=== PATIENT | female | born 1970 | race Caucasian/White ===

== ENCOUNTER 2021-10-23 02:48 | Inpatient (IN) | payer OTHER, SELFPAY ==
[2021-10-23] VITALS (15 sets, daily range): BP systolic 107–136; BP diastolic 55–84; PULSE 90–124; RESP 14–20; TEMP 37–38.3; O2SAT 96–100; BMI 30.1
--- NOTE | ~2021-10-23 | XR_ITS ---
XR abdomen/kub 1V 10/23/2021 04:23 INDICATION: Left flank pain TECHNIQUE: KUB COMPARISON: None FINDINGS: Bowel gas pattern is normal. There is no evidence of free air, mass, organomegaly, ascites or obstruction. No abnormal calculi are seen. The bones appear intact. IMPRESSION: 1: No acute abdominal abnormality identified. Reviewed, dictated and finalized at location A. PMENT INSPECTOR
--- NOTE | ~2021-10-23 | US_ITS ---
US abdomen limited INDICATION: Transaminitis PROCEDURE: Realtime right upper abdominal ultrasound. COMPARISON: No prior studies for comparison. FINDINGS: The pancreas is normal without focal mass or pancreatic ductal dilation. Liver echotexture is normal without focal mass or intrahepatic biliary dilatation. There is normal directional flow i n the portal vein. The gallbladder is normal without stones, gallbladder wall thickening or pericholecystic fluid. Comm on bile duct measures 2 mm. No sonographic Headley's sign. IMPRESSION: 1: Normal limited abdominal ultrasound. Reviewed, dictated and finalized at location A. [employer]
--- NOTE | ~2021-10-23 | CT_ITS ---
EXAMINATION: CT abdomen pelvis wo con DATE: 10/23/2021 04:24 INDICATION: Left length pain TECHNIQUE: Computed tomography (CT) of the abdomen and pelvis was performed without intravenous contr ast. The dose-length product was 595.21 mGy-cm. Automated exposure control and iterative reconstructi on technique were employed. COMPARISON: None. FINDINGS: Heart size normal. No significant pleural or pericardial effusion. There is left hydrourete ronephrosis with periureteral and perinephric edema. No obstructing stone identified. There are nonob structing bilateral renal stones. Lung bases are unremarkable. Heart size normal. No significant pleural or pericardial effusion. The l iver, spleen, pancreas, adrenal glands are unremarkable. Normal appendix. Nonobstructive bowel patter n. No free air or free fluid. IMPRESSION: 1. Moderate left hydroureteronephrosis, likely secondary to recently passed ureteral stone. Cannot ex clude ascending urinary tract infection. 2: Nonobstructing bilateral nephrolithiasis. Reviewed, dictated and finalized at location A. OFF DRIVER IMPRESSION: 1. Moderate left hydroureteronephrosis, likely secondary to recently passed ure teral stone. Cannot exclude ascending urinary tract infection. 2: Nonobstructing bilateral nephrolithiasis.
--- NOTE | 2021-10-23 03:16 | ED.BACK ---
HPI - Back Pain/Injury General Chief Complaint: Back Pain/Injury Stated Complaint: lower back pain Time Seen by Provider: 10/23/21 02:53 Source: patient Mode of arrival: ambulatory Limitations: no limitations History of Present Illness HPI Narrative: This is a 51 year old female who presents for evaluation of left lower back pain. She developed mild pain Saturday and it has gradually increased in intensity. Tonight she developed chills, nausea, weakness and headache so she came to ER for evaluation. Her is improved with warm showers. she took ibuprofen 400 mg 2 hours ago without improvement in her pain. She denies worsening pain with movement. Currently her pain is 7/10. She denies hematuria, dysuria, or increased urinary frequency. She does not irregular menses and she reports she is perimenopausal. On saturday, she had a few hours of vaginal bleeding that resolved. MD elicited complaint: back pain Related Data Home Medications Medication Instructions Recorded Confirmed rhubarb root extract 4 mg tablet mg PO 04/14/21 04/14/21 Allergies Allergy/AdvReac Type Severity Reaction Status Date / Time Penicillins Allergy Severe Anaphylaxis Verified 10/23/21 02:55 Review of Systems Review of Systems: All systems reviewed & are unremarkable except as noted in HPI and below Constitutional: Constitutional: Reports chills and Reports weakness ENT: Denies nasal congestion and Denies sore throat Cardiovascular: Cardiovascular: Denies chest pain Respiratory: Respiratory: Denies cough and Denies dyspnea Gastrointestinal: Gastrointestinal: Reports abdominal pain, Denies diarrhea, Reports nausea and Denies vomiting Genitourinary: Genitourinary: Reports abnormal vaginal bleeding, Denies hematuria and Reports flank pain Musculoskeletal: Musculoskeletal: Reports back pain Neurologic: Reports headache(s) [facility] Past Medical History Medical History (Updated 10/23/21 @ 06:28 by Chaya Robbins MD) Anemia Essential (primary) hypertension Raynauds syndrome Surgical History Surgical History (Updated 10/23/21 @ 03:23 by Chaya Robbins MD) H/O exploratory laparotomy Social History Social History Smoking status: Never smoker Second hand tobacco smoke exposure: No Alcohol intake: current Exam Const: General: no acute distress and alert Orientation/consciousness: patient oriented x3 Eyes: EOM: EOMs intact bilaterally Resp: Effort & Inspection: normal respiratory effort and no retractions Auscultation: clear to auscultation bilaterally Cardio: Rate: regular rate Rhythm: regular rhythm Heart sounds: no murmurs GI: GI Palp: Yes Soft to palpation, No Tenderness to palpation present (GI), No Guarding due to palpation present (GI) and No Rigid due to palpation Auscultation: normal bowel sounds : General: Yes no CVA tenderness Skin: General skin exam: normal color Rashes: no rashes Neuro: General: patient oriented x3 and CN's II-XI intact bilaterally Psych: Mental Status: mental status grossly normal Affect: normal affect Course Reevaluation(s) Reevaluation #1: I discussed with patient she has findings of sepsis due to UTI. She reports nausea has resolved. She still has headache and she is still slightly tachycardic. Date: 10/23/21 Time: 05:51 Vital Signs Vital signs: Vital Signs Temperature 98.8 F 10/23/21 02:49 Pulse Rate 124 H 10/23/21 02:49 Respiratory Rate 20 10/23/21 02:49 Blood Pressure 136/84 10/23/21 02:49 Pulse Oximetry 100 10/23/21 02:49 Temperature 98.8 F 10/23/21 02:49 Pulse Rate 105 H 10/23/21 05:26 Respiratory Rate 18 10/23/21 05:26 Blood Pressure 116/71 10/23/21 05:26 Pulse Oximetry 96 10/23/21 05:26 MDM - Back Pain/Injury Lab Data Attestation: I reviewed the patient's lab results. Result diagrams: 10/23/21 03:21 10/23/21 03:21 Labs:
[2021-10-23] MEDS: SODIUM CHLORIDE 0.9% IV 1,000 ML 999 ML IV CONT ×3 (03:24→06:19)
[2021-10-23] MEDS: MORPHINE SULFATE (*CRX) 4 MG/ML INJ IV PUSH (03:25)
[2021-10-23] MEDS: ONDANSETRON INJ 4 MG/2 ML VIAL IV PUSH (03:25)
[2021-10-23 03:44] LABS: Basophils Percent Auto 0.2 % (0.2-1.2); Eosinophils Percent Auto 0.2 % (0-4.4); Hematocrit 43.4 % (37.0-47.0); Hemoglobin 14.7 g/dL (12.0-15.0); Immature Granulocyte Absolute 0.03 K/mm3 (0.00-0.031); Immature Granulocyte Percent A 0.2 % (0-0.5); Lymphocytes Absolute Auto 0.99 K/mm3 (0.9-3.2); Lymphocytes Percent Auto 7.3 % (18.3-44.2); Mean Corpuscular HGB Conc 33.9 g/dl (32-36); Mean Corpuscular Hemoglobin 29.9 pg (26-34); Mean Corpuscular Volume 88.4 fl (80-100); Mean Platelet Volume 8.5 fl (7.4-10.4); Monocytes Absolute Auto 1.1 K/mm3 (0.1-0.6); Monocytes Percent Auto 7.9 % (2.6-8.5); Neutrophils Absolute Auto 11.5 K/mm3 (1.3-6.7); Neutrophils Percent Auto 84.2 % (45.5-73.1); Platelet Count Result 285 k/mm3 (150-375); Red Blood Count 4.91 M/mm3 (4.2-5.4); Red Cell Distribution Width 13.9 % (11.5-14.5); White Blood Count 13.6 K/mm3 (4.5-10.0)
[2021-10-23 03:48] LABS: Alanine Aminotransferase 21 U/L (4-35); Albumin Level 4.7 g/dL (3.5-5.1); Alkaline Phosphatase 79 U/L (38-126); Anion Gap 9 mmol/L (8-16); Aspartate Amino Transferase 24 U/L (14-36); Bilirubin,Total 0.5 mg/dL (0.2-1.3); Blood Urea Nitrogen 12 mg/dL (7-17); Carbon Dioxide 27 mmol/L (22-30); Chloride 100 mmol/L (98-107); Estimated CRCL calculation 73 ml/min; Estimated Glomerular Filt Rate > 60; Glucose 132 mg/dL (65-110); Lipase 33 U/L (23-300); Potassium 3.8 mmol/L (3.4-5.0); Sodium 136 mmol/L (137-145)
[2021-10-23 03:49] LABS: Lactic Acid Reflex 1.3 mmol/L (0.7-2.1)
[2021-10-23 03:54] LABS: Add Urine Microscopic? YES; Appearance Urine Cloudy (Clear); Bacteria Urine 2+ /hpf; Bilirubin Urine Negative (Negative); Blood Urine 2+ (Negative); Color Urine Yellow (Yellow); Glucose Urine UA Negative (Negative); Ketones Urine Trace mg/dL (Negative); Leukocyte Esterase Ur 2+ LEU/UL (Negative); Mucus Urine Rare /lpf; Nitrate Urine Positive (Negative); Protein Urine 2+ mg/dL (Negative); RBC Urine 21-50 /hpf (0-2); Specific Grav Ur 1.013 (1.001-1.035); Squamous Epithelial Cell Urine Many /hpf (Few); Urobilinogen Urine Negative mg/dL (<2.0); WBC Urine >75 /hpf
[2021-10-23] MEDS: HYDROmorphone HCL INJ (*CRX) 1 MG/ML SYR IV PUSH (05:23)
--- NOTE | 2021-10-23 07:45 | PM.IMHP ---
H&P: HPI History of Present Illness Date/Time: 10/23/21 07:45 This 51 year old female patient with PMH of HTN is being admitted to the hospital after presenting to the ER in the manager environmental health and safety hours with complaints of two days of severe back pain, low grade fevers, and chills with intermittent Nausea and weakness. She endorsed that she also had a headache and low abdominal pain. In the ER she was noted to have Leukocytosis and her urine was positive for a UTI. X-ray of abdomen was negative, but on CT of abdomen, the pt. had noted dilation of the left renal collecting system and perinephric and periureteral stranding was present signifying an ascending UTI. 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 Chief Complaint: UTI, Sepsis Review of Systems Review of Systems: A 12 point ROS was performed and is negative except as noted in HPI. [facility] Past Medical History Medical History Anemia Essential (primary) hypertension Raynauds syndrome Surgical History Surgical History H/O exploratory laparotomy Social History Social History Smoking status: Never smoker Second hand tobacco smoke exposure: No Alcohol intake: current Meds Home Medications and Allergies Home Medications Medication Instructions Recorded Confirmed Type lisinopril 40 mg tablet 40 mg PO DAILY #90 tablet 04/14/21 04/14/21 Rx rhubarb root extract 4 mg tablet mg PO 04/14/21 04/14/21 History Allergies Allergy/AdvReac Type Severity Reaction Status Date / Time Penicillins Allergy Severe Anaphylaxis Verified 10/23/21 02:55 Vital Signs Vital Signs - 24 hr 10/23/21 02:49 10/23/21 03:33 10/23/21 04:36 Temperature 98.8 F Pulse Rate 124 H 102 H 101 H Respiratory Rate 20 18 16 Blood Pressure 136/84 116/70 119/74 Pulse Oximetry 100 99 98 10/23/21 05:26 10/23/21 06:34 10/23/21 07:18 Temperature Pulse Rate 105 H 99 99 Respiratory Rate 18 18 18 Blood Pressure 116/71 107/55 L 111/74 Pulse Oximetry 96 97 100 Exam Const: General: comfortable and no acute distress; No in distress HENMT: Mouth: Yes moist mucous membranes Eyes: General: appearance normal, both eyes and all related structures Sclera: sclerae normal Pupils: Equal, round and reactive pupils present EOM: EOMs intact bilaterally Neck: Neck: supple and no JVD Thyroid: thyroid normal Lymphatic: lymphadenopathy not noted Resp: Effort & Inspection: normal respiratory effort Auscultation: clear to auscultation bilaterally Cardio: Rate: regular rate Rhythm: regular rhythm GI: GI Palp: Yes Soft to palpation and Yes Tenderness to palpation present (GI) (TTP suprapubic region.) Auscultation: normal bowel sounds Skin: General skin exam: normal color and no rashes or lesions noted Neuro: General: gait normal Speech: normal speech Motor exam (neuro): 5/5 motor strength present throughout and Normal motor muscle tone present throughout Extrem: General: normal to inspection Right upper extremity: normal to inspection Left upper extremity: normal to inspection Right lower extremity: normal to inspection Left lower extremity: normal to inspection Psych: Mental Status: mental status grossly normal Affect: normal affect H&P: Results Labs Labs: Short CBC 10/23/21 Range/Units 03:21 WBC 13.6 H (4.5-10.0) K/mm3 Hgb 14.7 (12.0-15.0) g/dL Hct 43.4 (37.0-47.0) % Plt Count 285 (150-375) k/mm3 [facility] 10/23/21 03:21 Sodium 136 L Potassium 3.8 Chloride 100 Carbon Dioxide 27 BUN 12 Creatinine 0.80 Glucose 132 H Calcium 9.0 Liver Function 10/23/21 Range/Units 03:21 Total Bilirubin 0.5 (0.2-1.3) mg/dL AST 24 (14-36) U/L ALT 21 (4-35) U/L Alkaline Phosphatase 79
--- NOTE | 2021-10-23 07:58 | PC.NURSE ---
This patient, Viry Baires, was admitted to Medical Room 250-01. Patient/family oriented to hospital policies and general routines including ID bracelet, bed and alarms, visiting hours, pain management, procedures, bathroom and other care routines, personal items, smoking policy, room service/diet, and visiting hours. Information on how to activate the Rapid Response Team has been discussed. Patient/Family are encouraged to report perceived risks to care and to ask questions if they do not understand what they are told or what they should do.
[2021-10-23] MEDS: SODIUM CHLORIDE 0.9% IV 1,000 ML 125 ML IV CONT ×2 (09:01→18:33)
[2021-10-23] MEDS: lisinopriL 20 MG TABLET 40 MG PO (09:02)
[2021-10-23] MEDS: KETOROLAC 30 MG/ML VIAL (*BKC) IV PUSH (18:33)
[2021-10-24] VITALS (20 sets, daily range): BP systolic 113–138; BP diastolic 58–68; PULSE 64–113; RESP 16–21; TEMP 36.4–39.3; O2SAT 95–100
[2021-10-24] MEDS: KETOROLAC 30 MG/ML VIAL (*BKC) IV PUSH (01:44)
[2021-10-24] MEDS: SODIUM CHLORIDE 0.9% IV 1,000 ML 125 ML IV CONT ×3 (03:06→20:17)
[2021-10-24 05:23] LABS: Basophils Percent Auto 0.2 % (0.2-1.2); Eosinophils Percent Auto 0.3 % (0-4.4); Hematocrit 40.6 % (37.0-47.0); Hemoglobin 13.4 g/dL (12.0-15.0); Immature Granulocyte Absolute 0.05 K/mm3 (0.00-0.031); Immature Granulocyte Percent A 0.5 % (0-0.5); Lymphocytes Absolute Auto 1.22 K/mm3 (0.9-3.2); Lymphocytes Percent Auto 11.6 % (18.3-44.2); Mean Corpuscular Hemoglobin 29.1 pg (26-34); Mean Corpuscular Volume 88.3 fl (80-100); Mean Platelet Volume 8.5 fl (7.4-10.4); Monocytes Absolute Auto 0.9 K/mm3 (0.1-0.6); Monocytes Percent Auto 8.7 % (2.6-8.5); Neutrophils Absolute Auto 8.3 K/mm3 (1.3-6.7); Neutrophils Percent Auto 78.7 % (45.5-73.1); Platelet Count Result 183 k/mm3 (150-375); Red Cell Distribution Width 14.2 % (11.5-14.5); White Blood Count 10.5 K/mm3 (4.5-10.0)
[2021-10-24 05:55] LABS: Alanine Aminotransferase 51 U/L (4-35); Albumin Level 3.7 g/dL (3.5-5.1); Alkaline Phosphatase 82 U/L (38-126); Anion Gap 4 mmol/L (8-16); Aspartate Amino Transferase 56 U/L (14-36); Bilirubin,Total 0.5 mg/dL (0.2-1.3); Blood Urea Nitrogen 7 mg/dL (7-17); Calcium 7.7 mg/dL (8.4-10.2); Carbon Dioxide 25 mmol/L (22-30); Chloride 108 mmol/L (98-107); Estimated CRCL calculation 95 ml/min; Estimated Glomerular Filt Rate > 60; Glucose 101 mg/dL (65-110); Potassium 3.8 mmol/L (3.4-5.0); Sodium 137 mmol/L (137-145)
[2021-10-24] MEDS: ACETAMINOPHEN 500 MG TABLET 1000 MG PO ×3 (06:45→21:15)
[2021-10-24 08:22] LABS: Procalcitonin 0.1 ng/mL
[2021-10-24] MEDS: lisinopriL 20 MG TABLET 40 MG PO (08:51)
--- NOTE | 2021-10-24 10:07 | PM.IMPN ---
Progress Note: A&P Assessment and Plan (1) Sepsis: Onset Date: ~10/23/21 Qualifiers: Sepsis acute organ dysfunction status: without acute organ dysfunction Sepsis type: sepsis due to unspecified organism Qualified Code(s): A41.9 - Sepsis, unspecified organism Code(s): A41.9 - Sepsis, unspecified organism Status: Acute Assessment and Plan: - Secondary to UTI/Pyelo. - Treat with Abx, Levaquin as pt. has anaphylaxis to PCN. - Await results of Urine Cx. - Blood cultures x2 preliminarily without growth at 24 hours. - Follow labs and VS trends. Lactic acid and Procalcitonin are negative after pt. spiked fever. - Will tailor treatment according to the urine culture results. (2) UTI (urinary tract infection): Onset Date: ~10/23/21 Qualifiers: Urinary tract infection type: acute pyelonephritis Qualified Code(s): N10 - Acute pyelonephritis Code(s): N39.0 - Urinary tract infection, site not specified Status: Acute Assessment and Plan: - Secondary to UTI/Pyelo. - Treat with Abx, Levaquin as pt. has anaphylaxis to PCN. - Await results of Urine Cx. - Blood cultures x2 preliminarily without growth at 24 hours. - Follow labs and VS trends. Lactic acid and Procalcitonin are negative after pt. spiked fever. - Will tailor treatment according to the urine culture results (3) Essential (primary) hypertension: Onset Date: Unknown Code(s): I10 - Essential (primary) hypertension Status: Chronic Assessment and Plan: - Continue Lisinopril 40 mg po daily. - Monitor. Currently stable. - PRN Hydralazine is ordered for coverage if SBP>180 or DBP>90. Time Spent With Patient Time with patient: 15 - 25 minutes Subjective Date/time seen: 10/24/21 0730 This pt. was examined at the bedside in interval assessment. She was admitted to the hospital yesterday for a UTI with sepsis. She was having worsening of her symptoms. She was placed on Levaquin on the floor and cultures are pending. Preliminary Blood cultures are both negative this far for any growth, but urine is still pending. She remains stable, but did spike a fever of 102.0 this AM. Lactic acid and Procalcitonin are checked and are both negative. Fever relieved with Tylenol. It is noted though on her labs that her transaminases are now elevated and on exam, pt does have some tenderness of the RUQ. She does still have a Gall Bladder. limited is ordered for evaluation at this time. Pt. has no other new complaints such as cough, CP, dyspnea, N/V. Review of Systems Review of Systems: A full 12 point ROS was performed and is otherwise negative with exception of what is mentioned in HPI. All systems reviewed & are unremarkable except as noted in HPI and below Exam Const: General: comfortable and no acute distress; No in distress HENMT: Mouth: Yes moist mucous membranes Eyes: General: appearance normal, both eyes and all related structures Sclera: sclerae normal Pupils: Equal, round and reactive pupils present EOM: EOMs intact bilaterally Neck: Neck: supple and no JVD Thyroid: thyroid normal Lymphatic: lymphadenopathy not noted Resp: Effort & Inspection: normal respiratory effort Auscultation: clear to auscultation bilaterally Cardio: Rate: regular rate Rhythm: regular rhythm GI: GI Palp: Yes Tenderness to palpation present (GI) (RUQ and Suprapubic) and Yes Guarding due to palpation present (GI) (Suprapubic) Auscultation: normal bowel sounds Skin: General skin exam: normal color and no rashes or lesions noted Neuro: General: gait normal Cranial nerves: Yes Equal, round and reactive pupils present Speech: normal speech Motor exam (neuro): 5/5 motor strength present throughout and Normal motor muscle tone present throughout Extrem: General: normal to inspection Right upper extremity: normal to inspection Left upper extremity: normal to inspection Right lower extremity: normal to inspection Le
[2021-10-24 11:58] LABS: Glucose Point of Care 77 mg/dl (65-105)
[2021-10-24] MEDS: MORPHINE SULFATE (*CRX) 4 MG/ML INJ IV PUSH (12:23)
[2021-10-24] MEDS: ENOXAPARIN 40 MG/0.4 ML SYRINGE SUB-Q (14:19)
[2021-10-24] MEDS: ERTAPENEM 1 GM/NS 50 ML 1 GM/50 ML BAG IVPB (14:55)
[2021-10-25] VITALS (10 sets, daily range): BP systolic 113–128; BP diastolic 58–68; PULSE 67–95; RESP 17–20; TEMP 36.1–37.8; O2SAT 95–100
[2021-10-25] MEDS: SODIUM CHLORIDE 0.9% IV 1,000 ML 125 ML IV CONT (03:31)
[2021-10-25 07:42] LABS: Basophils Percent Auto 0.3 % (0.2-1.2); Eosinophils Absolute Auto 0.1 K/mm3 (0-0.3); Eosinophils Percent Auto 0.8 % (0-4.4); Hematocrit 32.1 % (37.0-47.0); Hemoglobin 11.1 g/dL (12.0-15.0); Immature Granulocyte Absolute 0.04 K/mm3 (0.00-0.031); Immature Granulocyte Percent A 0.4 % (0-0.5); Lymphocytes Absolute Auto 1.15 K/mm3 (0.9-3.2); Lymphocytes Percent Auto 10.8 % (18.3-44.2); Mean Corpuscular HGB Conc 34.6 g/dl (32-36); Mean Corpuscular Hemoglobin 30.3 pg (26-34); Mean Corpuscular Volume 87.7 fl (80-100); Mean Platelet Volume 8.7 fl (7.4-10.4); Monocytes Absolute Auto 0.7 K/mm3 (0.1-0.6); Neutrophils Absolute Auto 8.6 K/mm3 (1.3-6.7); Neutrophils Percent Auto 80.7 % (45.5-73.1); Platelet Count Result 170 k/mm3 (150-375); Red Blood Count 3.66 M/mm3 (4.2-5.4); Red Cell Distribution Width 14.2 % (11.5-14.5); White Blood Count 10.6 K/mm3 (4.5-10.0)
[2021-10-25 07:46] LABS: Alanine Aminotransferase 153 U/L (4-35); Albumin Level 3.4 g/dL (3.5-5.1); Alkaline Phosphatase 116 U/L (38-126); Anion Gap 1 mmol/L (8-16); Aspartate Amino Transferase 120 U/L (14-36); Bilirubin,Total 0.3 mg/dL (0.2-1.3); Blood Urea Nitrogen 6 mg/dL (7-17); Calcium 7.7 mg/dL (8.4-10.2); Carbon Dioxide 24 mmol/L (22-30); Chloride 108 mmol/L (98-107); Estimated CRCL calculation 95 ml/min; Estimated Glomerular Filt Rate > 60; Glucose 95 mg/dL (65-110); Magnesium 1.9 mg/dL (1.6-2.3); Potassium 3.5 mmol/L (3.4-5.0); Sodium 133 mmol/L (137-145)
[2021-10-25] MEDS: lisinopriL 20 MG TABLET 40 MG PO (08:30)
[2021-10-25] MEDS: ACETAMINOPHEN 500 MG TABLET 1000 MG PO ×2 (10:42→20:41)
[2021-10-25] MEDS: ERTAPENEM 1 GM/NS 50 ML 1 GM/50 ML BAG IVPB (14:28)
--- NOTE | 2021-10-25 15:24 | PM.IMPN ---
Progress Note: A&P Assessment and Plan (1) Sepsis: Onset Date: ~10/23/21 Qualifiers: Sepsis acute organ dysfunction status: without acute organ dysfunction Sepsis type: sepsis due to unspecified organism Qualified Code(s): A41.9 - Sepsis, unspecified organism Code(s): A41.9 - Sepsis, unspecified organism Status: Acute Assessment and Plan: Septic on admission, secondary to UTI/pyelonephritis. - Patient febrile up to 102.7. - White blood cell count improved, 10.6 today - Lactic acid is within normal limits - Continue IV Ertapenem - Preliminary blood cultures negative to date (2) Pyelonephritis: Code(s): N12 - Tubulo-interstitial nephritis, not specified as acute or chronic Status: Acute Assessment and Plan: Presented with left flank and back pain -CT abdomen/pelvis showed moderate left hydroureteronephrosis, ascending urinary tract infection not excludable -CT did demonstrate nonobstructing bilateral stones, unlikely to be the source of pain - Urinalysis was grossly abnormal. Urine culture with growth of >100k E coli - Started on IV Levaquin given her penicillin allergy - 10/24/2021 transition to IV ertapenem in light of persistent fever - Urine culture is susceptible to ertapenem and Levaquin. Will continue ertapenem at this time - Plan to transition to p.o. antibiotics tomorrow if remaining afebrile (3) Essential (primary) hypertension: Onset Date: Unknown Code(s): I10 - Essential (primary) hypertension Status: Chronic Assessment and Plan: Blood pressure reviewed and has been stable. Last BP 122/58 - Continue lisinopril 40 mg daily - Monitor blood pressure trends (4) Transaminitis: Code(s): R74.01 - Elevation of levels of liver transaminase levels Status: Acute Assessment and Plan: LFTs noted be mildly elevated on 10/24 - RUQ US obtained as pt reportedly endorsed RUQ tenderness (not appreciated on my exam today) - US was unremarkable - LFTs with increase today, now 3-4x upper limit of normal - Will check hepatitis panel - Could be related to sepsis - Continue to monitor, recheck CMP tomorrow Subjective Date/time seen: 10/25/21 15:24 Interval history: Date of service: 10/25/2021 Mary Baires is a 51-year-old female with a history of hypertension, anemia, and Raynaud syndrome who is seen in follow-up for pyelonephritis. She is feeling better today. She did have a low-grade fever of 100.1 earlier today. She does endorse feeling clammy and sweaty. This morning she felt achy and had chills prior to developing a fever. She did have nausea but denies vomiting. She had a bowel movement this morning. She denies dysuria, urgency, frequency, hematuria. On does endorse left-sided back and flank pain. States her urine has been a bit dark. Flank pain improved with Tylenol. Also endorsed a mild headache that improved with Tylenol. Appetite is good. She is eager for discharge home since she is feeling a lot better than yesterday. Review of Systems Review of Systems: All systems reviewed & are unremarkable except as noted in HPI and below Exam Narrative: General: Well-nourished, well-appearing 42 year-old female, sitting up in bed, comfortable, NARD Neuro: awake, alert and oriented x4, speech clear, no focal neuro deficits noted HEENMT: normocephalic, atraumatic, EOMI, sclerae anicteric Respiratory: clear to auscultation bilaterally, nonlabored breathing Cardio: regular rate, regular rhythm with S1-S2 Abdomen: nondistended, normoactive bowel sounds, soft, nontender to palpation : No CVA tenderness flank tenderness Extremities: no edema, erythema, or tenderness to palpation Skin: damp, slightly sweaty Psych: appropriate mood and affect, judgment and insight intact Objective Data Vital Signs Vital Signs: Vital Signs - 24 hr 10/24/21 16:00 10/24/21 17:45 10/24/21 20:00 Temperature 98.4 F Pu
[2021-10-26 05:33] LABS: Hematocrit 34.7 % (37.0-47.0); Hemoglobin 11.3 g/dL (12.0-15.0); Mean Corpuscular HGB Conc 32.6 g/dl (32-36); Mean Corpuscular Hemoglobin 29.2 pg (26-34); Mean Corpuscular Volume 89.7 fl (80-100); Mean Platelet Volume 8.8 fl (7.4-10.4); Platelet Count Result 236 k/mm3 (150-375); Red Blood Count 3.87 M/mm3 (4.2-5.4); Red Cell Distribution Width 14.2 % (11.5-14.5); White Blood Count 8.6 K/mm3 (4.5-10.0)
[2021-10-26 05:59] VITALS: BP 113/64; PULSE 80; RESP 17; TEMP 37.1; O2SAT 98
[2021-10-26 06:04] LABS: Alanine Aminotransferase 193 U/L (4-35); Albumin Level 3.6 g/dL (3.5-5.1); Alkaline Phosphatase 143 U/L (38-126); Anion Gap 6 mmol/L (8-16); Aspartate Amino Transferase 112 U/L (14-36); Bilirubin,Total 0.5 mg/dL (0.2-1.3); Blood Urea Nitrogen 7 mg/dL (7-17); Calcium 7.9 mg/dL (8.4-10.2); Carbon Dioxide 27 mmol/L (22-30); Chloride 105 mmol/L (98-107); Estimated CRCL calculation 95 ml/min; Estimated Glomerular Filt Rate > 60; Glucose 107 mg/dL (65-110); Potassium 3.5 mmol/L (3.4-5.0); Sodium 138 mmol/L (137-145)
[2021-10-26 07:01] LABS: Hepatitis B Surface Antigen Negative (Negative)
[2021-10-26 07:06] LABS: HAV RESULT Negative (Negative); Hepatitis B Core IgM Result Negative (Negative)
[2021-10-26 07:18] LABS: Hepatitis C Virus Antibody Negative (Negative)
[2021-10-26] MEDS: lisinopriL 20 MG TABLET 40 MG PO (09:30)
--- NOTE | 2021-10-26 09:41 | PM.DS ---
DS: Admitting Diagnosis Discharge Date 10/26/2021 Admitting Diagnosis Pyelonephritis DS: Discharge Diagnosis Discharge Diagnosis (1) Sepsis: Onset Date: ~10/23/21 Qualifiers: Sepsis acute organ dysfunction status: without acute organ dysfunction Sepsis type: sepsis due to unspecified organism Qualified Code(s): A41.9 - Sepsis, unspecified organism Code(s): A41.9 - Sepsis, unspecified organism Status: Acute Assessment and Plan: Septic on admission, secondary to UTI/pyelonephritis - Patient febrile up to 102.7. Fever resolved and she was afebrile 24 hours prior to discharge - Leukocytosis resolved - Lactic acid within normal limits - Managed with IV antibiotics, will continue p.o. antibiotics on discharge - Preliminary blood cultures negative after nearly 4 days. Will monitor final cultures (2) Pyelonephritis: Code(s): N12 - Tubulo-interstitial nephritis, not specified as acute or chronic Status: Acute Assessment and Plan: Presented with left flank and back pain - CT abdomen/pelvis showed moderate left hydroureteronephrosis, ascending urinary tract infection not excludable - Urinalysis was grossly abnormal. Urine culture with growth of >100k E coli - Started on IV Levaquin given her penicillin allergy - 10/24/2021 transitioned to IV ertapenem due to high fever - Urine culture susceptible to both ertapenem and Levaquin - She had symptomatic improvement following treatment with IV antibiotics - Continue p.o. Levaquin for 7 days on discharge. This will complete 10 total days of antibiotic therapy - Follow-up with PCP in 1 week for monitoring (3) Essential (primary) hypertension: Onset Date: Unknown Code(s): I10 - Essential (primary) hypertension Status: Chronic Assessment and Plan: Blood pressure reviewed and remained stable. - Continue lisinopril 40 mg daily (4) Transaminitis: Code(s): R74.01 - Elevation of levels of liver transaminase levels Status: Acute Assessment and Plan: LFTs noted be mildly elevated on 10/24 - RUQ US obtained and was unremarkable. Normal liver echotexture without biliary dilatation. No gallbladder stones, pericholecystic fluid, or wall thickening - CT on presentation also shows normal - Hepatitis panel negative - LFTs increased to 3-4x upper limit - On date of discharge, AST did begin to trend down. ALT still with slight upward trend - Suspect secondary to sepsis and anticipate return to baseline following resolution of acute infection - Repeat labs in 1 week to ensure improvement/resolution. Results to PCP. Patient aware of need for follow-up. (5) Bilateral nephrolithiasis: Code(s): N20.0 - Calculus of kidney Status: Acute Assessment and Plan: Noted on CT to have nonobstructing bilateral nephrolithiasis - This is unlikely to be the source of flank pain - Patient made aware of these findings DS: Summary Hospital Course Hospital Course: Date of admission: 10/23/2021 Date of discharge: 10/26/2021 Viry Baires is a 51-year-old female with a history of hypertension, anemia, and Raynaud syndrome who presented to the emergency department on 10/23/2021 with complaints of left lower back pain, chills, and nausea. On presentation to the emergency department, she was noted to have mild leukocytosis, urinalysis was grossly abnormal, and CT scan showed findings concerning for pyelonephritis. She was admitted to the hospitalist service for further evaluation and management. Please see above for further details. She had symptomatic improvement with IV antibiotic therapy p.o. antibiotics on discharge to complete a 10 day course. Her pain resolved and she was feeling back to her usual state of health. She requested discharge home. Given overall she was determined to no longer require inpatient care and was discharged in hemodynamically stable condition we 11/12/2021. It is dis
--- NOTE | 2021-10-26 10:28 | PC.NURSE ---
I reviewed the student nurse charting and agree with the findings.
--- NOTE | 2021-10-26 10:42 | PC.NURSE ---
On 10/26/21, the student, [Drew Meyer], provided care and completed [facility] documentation on this patient. I have reviewed the student's documentation and agree with the findings.
== END 2021-10-26 10:31 | disposition home or self-care (01) | DRG 872 ==
LOC: ANHED 06:28 → ANH2MED 06:47
PROVIDERS: Nurse Practitioner Adult Health; Nurse Practitioner Family; Physician Assistant; Admitting Provider Internal Medicine; Emergency Provider General Practice; PCP Internal Medicine; Visit Provider Family Medicine
DX: A41.9 Sepsis, unspecified organism (principal); N10 Acute pyelonephritis; B96.20 Unspecified Escherichia coli [E. coli] as the cause of diseases classified elsewhere; N20.0 Calculus of kidney; I10 Essential (primary) hypertension; D64.9 Anemia, unspecified; R74.01 Elevation of levels of liver transaminase levels; Z88.0 Allergy status to penicillin; Z28.21 Immunization not carried out because of patient refusal
CPT/HCPCS: 36415; 74018; 74176; 76705; 80053; 80074; 81001; 81025; 82948; 83605; 83690; 83735; 84145; 85025; 85027; 87040; 87077; 87086; 87088; 87186; 96361; 96365; 96375; 96376; 99285; A9270; G0378; J0131; J1170; J1335; J1650; J1885; J1956; J2270; J2405; J7030

== ENCOUNTER 2022-05-21 15:46 | Outpatient (CLI) | payer OTHER, SELFPAY ==
--- NOTE | ~2022-05-21 | XR_ITS ---
XR abdomen/kub 1V 05/21/2022 16:04 INDICATION: Kidney stones TECHNIQUE: KUB COMPARISON: 10/23/2021 FINDINGS: Bowel gas pattern is normal. There is no evidence of free air, mass, organomegaly, ascites or obstruction. No abnormal calculi are seen. The bones appear intact. IMPRESSION: 1: No acute abdominal abnormality identified. Reviewed, dictated and finalized at location B.
--- NOTE | ~2022-05-21 | CT_ITS ---
EXAMINATION: CT abdomen pelvis wo con DATE: 05/21/2022 16:01 INDICATION: History of kidney stones. Bilateral low back pain for one month. TECHNIQUE: Computed tomography (CT) of the abdomen and pelvis was performed without intravenous contr ast. The dose-length product was 279.05 mGy-cm. Automated exposure control and iterative reconstructi on technique were employed. COMPARISON: CT dated 10/23/2021 FINDINGS: Lung bases are unremarkable. Heart size is normal. No significant pleural or pericardial ef fusion. There are small nonobstructing bilateral renal stones measuring 3 mm or less. No ureteral sto brooke or hydronephrosis. Bladder is unremarkable. Heart size is normal. No significant pleural or peric ardial effusion. Gallbladder is present. No significant vascular abnormality. No lymphadenopathy. Ret roaortic left renal vein. Tiny fat-containing umbilical hernia. No abnormal pelvic masses or fluid co llections. No free air or free fluid. Mild lumbar spondylosis. IMPRESSION: 1. Nonobstructing bilateral nephrolithiasis. Reviewed, dictated and finalized at location B.
== END 2022-05-21 15:47 | disposition home or self-care (01) ==
LOC: ANHIMG 15:48
PROVIDERS: PCP Internal Medicine; Visit Provider Urology
DX: N20.0 Calculus of kidney (principal); K42.9 Umbilical hernia without obstruction or gangrene; M47.816 Spondylosis without myelopathy or radiculopathy, lumbar region
CPT/HCPCS: 74018; 74176